=== PATIENT | male | born 1955 | race Asian ===

== ENCOUNTER → 2020-06-25 | Outpatient (CLI) | payer MEDICARE ==
[2020-06-25 12:32] LABS: INR 1.7 (0.9-1.1); PROTHROMBIN TIME 17.7 SEC (9.4-11.6)
[2020-06-25 12:38] LABS: ALANINE AMINOTRANSFERASE 41 U/L (12-78); ANION GAP 6 mmol/L (8-16); ASPARTATE AMINOTRANSFERASE 91 U/L (15-37); BILIRUBIN,TOTAL 1.2 mg/dL (0.1-1.0); CALCIUM, TOTAL 9.2 mg/dL (8.8-10.5); CARBON DIOXIDE 28 mmol/L (22-29); CHLORIDE 107 mmol/L (98-107); CHOL/HDL RATIO 2.7 (4.2-7.3); CHOLESTEROL 125 mg/dL (131-200); CREATININE 0.77 mg/dL (0.60-1.30); GLOMERULAR FILTR. RATE CALC > 60 mL/min (>60); GLUCOSE,RANDOM 94 mg/dL (70-110); HDL CHOLESTEROL 47 mg/dL (40-60); LDL CHOL (CALC.) 63 mg/dL (0-130); POTASSIUM 4.2 mmol/L (3.5-5.1); SODIUM SERUM 141 mmol/L (136-145); TOTAL PROTEIN, SERUM 7.6 g/dL (6.4-8.2); TRIGLYCERIDES 75 mg/dL (15-150); UREA NITROGEN, BLOOD 14 mg/dL (7-18)
[2020-06-25 13:05] LABS: ALKALINE PHOSPHATASE 38 U/L (46-116)
[2020-06-25 13:27] LABS: B-TYPE NATRIURETIC PEPTIDE 76 pg/mL (0-100)
== END | disposition home or self-care (01) ==
LOC: LABPV 11:39
PROVIDERS: ATTEND Internal Medicine Cardiovascular Disease
DX: I11.0 Hypertensive heart disease with heart failure (principal); I50.9 Heart failure, unspecified; E11.8 Type 2 diabetes mellitus with unspecified complications; E55.9 Vitamin D deficiency, unspecified; D56.5 Hemoglobin E-beta thalassemia